=== PATIENT | female | born 1955 | race Caucasian/White ===

== ENCOUNTER 2022-08-03 08:50 | Emergency (ER) | payer OTHER ==
[2022-08-03] MEDS ORDERED: ACETAMINOPHEN 500 MG TABLET (FP) PO ONE (09:03)
[2022-08-03] MEDS ORDERED: ACETAMINOPHEN 500 MG TABLET (FP) ONE (09:17)
[2022-08-03 09:18] VITALS: BP 123/93; PULSE 73; RESP 20; TEMP 97.8; BMI 26.2
== END 2022-08-03 12:34 | disposition home or self-care (01) ==
LOC: FER 08:50
DX: S05.12XA Contusion of eyeball and orbital tissues, left eye, initial encounter (principal); M25.572 Pain in left ankle and joints of left foot; R22.42 Localized swelling, mass and lump, left lower limb; R07.89 Other chest pain; W10.8XXA Fall (on) (from) other stairs and steps, initial encounter; W22.8XXA Striking against or struck by other objects, initial encounter
CPT/HCPCS: 70450-TC; 70486-TC; 72125-TC; 73610-TC-LT-FY; 99284-25